=== PATIENT | female | born 1990 | race Caucasian/White ===

== ENCOUNTER 2017-08-31 11:11 | Emergency (ER) | payer MEDICARE, MEDICAID ==
[~2017-08-31 11:11] MED LIST: ABILIF5PT PO; LISD30PT PO; LOR5/325 PO; ORTHONOVUM
[2017-08-31 11:17] VITALS: BP 137/84
--- NOTE | 2017-08-31 11:20 | ER Report ---
History and Physical Time Seen By MD: 11:18 HPI/ROS CHIEF COMPLAINT: Right ankle injury HISTORY OF PRESENT ILLNESS: Patient is a 26-year-old female who was walking down a flight of stairs in her apartment when she had an inversion to her right ankle and fell down the steps. She is complaining of pain to the lateral aspect of the right ankle no foot pain no proximal fibular or tibial pain. No other injuries. Allergies: Coded Allergies: No Known Drug Allergies (Unverified , 03/15/16) Home Meds Active Scripts Hydrocodone Bit/Acetaminophen (HYDROCODON-ACETAMINOPHEN 5-325) 1 Each Tablet, 1 EACH PO Q4-6H Y for PAIN, #12 TAB 0 Refills TAKE ONE TABLET BY MOUTH EVERY 4-6 HOURS NEEDED FOR PAIN Prov:YOLANDA KNOWLES MD 08/31/17 Reported Medications Aripiprazole (ABILIFY) 5 Mg Tablet, 5 MG PO QDAY, #10 TAB TAKE 1 TABLET BY MOUTH EVERY DAY 07/05/13 Past Medical/Surgical History Prior right ankle injury Hx Smoking: No Hx Substance Use Disorder: No Hx Alcohol Use: No Constitutional Vital Sign - Last 24 Hours 08/31/17 11:17 Pulse 111 Resp 16 B/P (MAP) 137/84 Pulse Ox 94 O2 Delivery Room Air Physical Exam General appearance: alert no distress Right ankle: There is no significant swelling. There is no obvious deformity to the ankle. There is moderate tenderness to the lateral malleolus. Ankle joint is stable and there is no tenderness over the achilles tendon. The foot is non-tender without swelling. Neurologic exam: The patient has normal sensation distal to the injury. Vascular exam: Normal pulses and capillary refill in the foot [ ] DIFFERENTIAL DIAGNOSIS: After history and physical exam differential diagnosis was considered for Medical Decision Making EKG/Imaging Imaging FACILITY: [facility] PATIENT NAME: Janine Laurent : 1990 MR: [id number] V: [id number] EXAM DATE: ORDERING PHYSICIAN: YOLANDA KNOWLES TECHNOLOGIST: Location: [facility] - [place] Patient: Janine Laurent : 1990 Visit/Account:[id number] Date of Sevice: 08/31/2017 ANKLE 3 VIEW MIN RIGHT Indication: Tripped on stairs, right ankle pain. Comparison: None. Findings: Distal tibia, distal fibula, and the talus demonstrate normal mineralization and alignment. The mortise is preserved. Calcaneus is intact. Soft tissues are normal. IMPRESSION: Normal right ankle radiograph. Report Dictated By: Bruce Valle at 08/31/2017 11:51 AM Report E-Signed By: Bruce Valle at 08/31/2017 11:52 AM WSN:[id number] ED Course/Re-evaluation ED Course 08/31/2017 12:15:34 pm a unremarkable for fracture plan will be crutches and Aircast. Decision to Disposition Date: Aug 31, 2017 Decision to Disposition Time: 11:58 Depart Departure Latest Vital Signs Vital Signs Date Time Temp Pulse Resp B/P (MAP) Pulse Ox O2 Delivery O2 Flow Rate FiO2 08/31/17 11:17 111 16 137/84 94 Room Air Impression: Primary Impression: Ankle sprain Condition: Improved Disposition: HOME OR SELF-CARE Referrals: OTILIO LYNCH PA-C (PCP) New Scripts Hydrocodone Bit/Acetaminophen (HYDROCODON-ACETAMINOPHEN 5-325) 1 Each Tablet 1 EACH PO Q4-6H Y for PAIN, #12 TAB 0 Refills TAKE ONE TABLET BY MOUTH EVERY 4-6 HOURS NEEDED FOR PAIN Prov: YOLANDA KNOWLES MD 08/31/17 Patient Instructions: Ankle Sprain (ED), Crutch Instructions (GEN) Problem Qualifiers Primary Impression: Ankle sprain Encounter type: initial encounter Involved ligament of ankle: anterior talofibular ligament Laterality: right Qualified Codes: S93.491A - Sprain of other ligament of right ankle, initial encounter YOLANDA KNOWLES MD Aug 31, 2017 11:20
--- NOTE | 2017-08-31 11:56 | RADIOLOGY IMAGING REPORT ---
FACILITY: [facility] PATIENT NAME: Janine Laurent : 1990 MR: [id number] V: [id number] EXAM DATE: ORDERING PHYSICIAN: YOLANDA KNOWLES TECHNOLOGIST: Location: [facility] Patient: Janine Laurent : 1990 Visit/Account:[id number] Date of Sevice: 08/31/2017 ANKLE 3 VIEW MIN RIGHT Indication: Tripped on stairs, right ankle pain. Comparison: None. Findings: Distal tibia, distal fibula, and the talus demonstrate normal mineralization and alignment. The mortise is preserved. Calcaneus is intact. Soft tissues are normal. IMPRESSION: Normal right ankle radiograph. Report Dictated By: Bruce Valle at 08/31/2017 11:51 AM Report E-Signed By: Bruce Valle at 08/31/2017 11:52 AM WSN:[id number]
[2017-08-31] MEDS ORDERED: LOR5/325 PO (12:01)
== END 2017-08-31 12:17 | disposition home or self-care (01) ==
LOC: ER 11:39
DX: S93.491A Sprain of other ligament of right ankle, initial encounter (principal)
CPT/HCPCS: 73610; 99283; L1930

== ENCOUNTER 2017-12-03 16:13 | Emergency (ER) | payer MEDICARE, MEDICAID ==
[2017-12-03 16:45] LABS: PLATELET COUNT, AUTOMATED 180 K/uL (150-450)
--- NOTE | 2017-12-03 16:45 | EKG ---
FACILITY: [facility] PATIENT NAME: RAYMON BURCH : [id number] MR: [id number] V: [id number] EXAM DATE: ORDERING PHYSICIAN: CANELO VILLALTA TECHNOLOGIST: MAGGY Earl Reason : PAIN Blood Pressure : / mmHG Vent. Rate : 075 BPM Atrial Rate : 075 BPM P-R Int : 130 ms QRS Dur : 080 ms QT Int : 376 ms P-R-T Axes : 075 069 058 degrees QTc Int : 419 ms Normal sinus rhythm Normal ECG No previous ECGs available Confirmed by KHANH AMBROSIO ([id number]) on 12/03/2017 5:52:36 PM Referred By: BENSON Confirmed By:KHANH AMBROSIO
[2017-12-03] MEDS ORDERED: KETOROLAC 30 MG/ML VIAL IVP ONE (17:10)
--- NOTE | 2017-12-03 17:38 | RADIOLOGY IMAGING REPORT ---
FACILITY: [facility] [place] PATIENT NAME: Janine Laurent : 1990 MR: [id number] V: [id number] EXAM DATE: ORDERING PHYSICIAN: CANELO VILLALTA TECHNOLOGIST: Location: [facility] Patient: Janine Laurent : 1990 Visit/Account:[id number] Date of Sevice: 12/03/2017 RIBS LEFT HISTORY: Chest pain COMPARISON: None FINDINGS: There is no evidence of a displaced rib fracture. No pneumothorax, pleural effusion or pul monary contusion. IMPRESSION: 1. No rib fracture or complication thereof. Report Dictated By: Aquilino Gambion MD at 12/03/2017 5:33 PM Report E-Signed By: Aquilino Gambino MD at 12/03/2017 5:34 PM WSN:[id number]
--- NOTE | 2017-12-03 17:38 | RADIOLOGY IMAGING REPORT ---
FACILITY: [facility] PATIENT NAME: Janine Laurent : 1990 MR: [id number] V: [id number] EXAM DATE: ORDERING PHYSICIAN: CANELO VILLALTA TECHNOLOGIST: Location: [facility] Patient: Janine Laurent : 1990 Visit/Account:[id number] Date of Sevice: 12/03/2017 CHEST PA AND LAT HISTORY: Chest pain COMPARISON: None FINDINGS: Cardiomediastinal contours: Normal Lungs and pleura: Normal Bones/soft tissues: Normal Other findings: None significant IMPRESSION: 1. Normal chest Report Dictated By: Aquilino Gambino MD at 12/03/2017 5:31 PM Report E-Signed By: Aquilino Gambino MD at 12/03/2017 5:33 PM WSN:[id number]
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
[2017-12-03 17:45] VITALS: BP 152/106
== END 2017-12-03 17:57 | disposition home or self-care (01) ==
LOC: ER 16:15
DX: S20.20XA Contusion of thorax, unspecified, initial encounter (principal)
CPT/HCPCS: 71046; 71100; 80305; 81001; 84484; 85025; 85379; 93005; 96374; 99284; G0480; J1885; 80320; 82040; 82247; 82310; 82374; 82435; 82565; 82947; 84075; 84132; 84155; 84295; 84450; 84460; 84520

== ENCOUNTER 2018-05-31 18:18 | Emergency (ER) | payer MEDICARE, MEDICAID ==
--- NOTE | 2018-05-31 18:41 | ER Report ---
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 Patient states that today she developed some achiness and then pain in her left anterior chest, increased pain with movement of her left arm, does not radiate into the shoulder or the neck no recent injuries, no fevers or chills. No nausea or vomiting. No diarrhea. No shortness of breath. No headaches or any other concerns. Patient does now recall lifting some heavy pans while at work which could have caused some of the pain in her chest. REVIEW OF SYSTEMS: Constitutional: No fever, no chills. Eyes: No discharge. ENT: No sore throat. Cardiovascular: As above. Respiratory: No cough, no shortness of breath. Gastrointestinal: No abdominal pain, no vomiting. Genitourinary: No hematuria. Musculoskeletal: No back pain. Skin: No rashes. Neurological: No headache. Allergies: Coded Allergies: No Known Drug Allergies (Unverified , 03/15/16) Home Meds Reported Medications Guaifenesin (ROBAFEN) 100 Mg/5 Ml Liquid, 100 MG PO 05/31/18 Naproxen Sodium (ALEVE) 220 Mg Tablet, 220 MG PO TID, TAB 05/31/18 Acetaminophen (TYLENOL) 325 Mg Tablet, 500 MG PO, TAB 05/31/18 Montelukast Sodium (SINGULAIR) 10 Mg Tablet, 1 TAB PO QDAY, TAB 05/31/18 Melatonin (MELATONIN) 10 Mg Capsule, 10 MG PO, CAPSULE 05/31/18 Atomoxetine (STRATTERA) 10 Mg Cap, 80 MG PO QDAY, CAP 05/31/18 Aripiprazole (ABILIFY) 5 Mg Tablet, 10 MG PO QDAY, #10 TAB 05/31/18 Discontinued Reported Medications Aripiprazole (ABILIFY) 5 Mg Tablet, 5 MG PO QDAY, #10 TAB TAKE 1 TABLET BY MOUTH EVERY DAY 07/05/13 Past Medical/Surgical History The patient has a past medical and surgical history of developmentally delayed. Reviewed Nurses Notes: Yes Hx Smoking: No Hx Substance Use Disorder: No Hx Alcohol Use: No Constitutional Vital Sign - Last 24 Hours 05/31/18 05/31/18 05/31/18/16/18 18:38 18:46 18:48 19:00 Temp 98.9 Pulse 82 93 Resp 14 29 B/P (MAP) 124/82 (96) 124/82 130/88 (102) Pulse Ox 97 97 O2 Delivery Room Air 05/31/18 05/31/18 19:03 19:18 Pulse 90 96 Resp 19 17 Pulse Ox 96 96 Physical Exam General Appearance: The patient is alert, has no immediate need for airway pr otection and no signs of toxicity. Eyes: Pupils equal and round no pallor or injection. ENT, Mouth: Mucous membranes are moist. Respiratory: There are no retractions, lungs are clear to auscultation. Cardiovascular: Regular rate and rhythm, no murmurs, clicks or rubs. Increased pain with palpation to the left anterior chest. Gastrointestinal: Abdomen is soft and non tender, no masses, bowel sounds normal. Neurological: Alert and oriented 4. Moving all extremities. Following all commands. No focal neuro deficits. Skin: Warm and dry, no rashes. Musculoskeletal: Neck is supple non tender. Extremities are nontender, nonswollen and have full range of motion. DIFFERENTIAL DIAGNOSIS: After history and physical exam differential diagnosis was considered for chest pain including but not limited to myocardial ischemia, pericarditis pulmonary embolus, chest wall pain, pleural inflammation and pulmonary infectious causes. Medical Decision Making Data Points Result Diagram: 05/31/18190805/31/181908 Laboratory Hematology Test 05/31/18 19:09 Red Blood Count 4.96 M/uL (4.17-5.56) Mean Corpuscular Volume 88.6 fL (80.0-96.0) Mean Corpuscular Hemoglobin 31.2 pg (26.0-33.0) Mean Corpuscular Hemoglobin Concent 35.2 g/dL (32.0-36.0) Red Cell Distribution Width 12.4 % (11.5-14.5) Mean Platelet Volume 8.0 fL (7.2-11.1) Neutrophils (%) (Auto) 67.4 % (39.4-72.5) Lymphocytes (%) (Auto) 22.5 % (17.6-49.6) Monocytes (%) (Auto) 8.3 % (4.1-12.4) Eosinophils (%) (Auto) 0.5 % (0.4-6.7) Basophils (%) (Auto) 1.3 % (0.3-1.4) Nucleated RBC Relative Count (auto) 0.0 /100WBC Neutrophils # (Auto) 6.5 K/uL (2.0-7.4) Lymphocytes # (Auto) 2.2 K/uL (1.3-3.6) Monocytes # (Auto) 0.8 K/uL (0.3-1.0) Eosinophils # (Auto) 0.0 K/uL (0.0-0.5) Basophils # (Auto) 0.1 K/uL (0.0-0.1) Nucleated RBC Absolute Count (auto) 0.00 K/uL Sodium Level 141 mmol/L (137-145) Potassium Level 3.8 mmol/L (3.5-5.0) Chloride Level 107 mmol/L (98-107) Carbon Dioxide Level 23 mmol/L (22-31) Blood Urea Nitrogen 10 mg/dl (7-18) Creatinine 0.80 mg/dl (0.52-1.04) Glomerular Filtration Rate Calc > 60.0 Random Glucose 121 mg/dl (75-110) Calcium Level 8.8 mg/dl (8.4-10.2) Total Bilirubin 0.3 mg/dl (0.2-1.3) Aspartate Amino Transf (AST/SGOT) 30 U/L (0-35) Alanine Aminotransferase (ALT/SGPT) 22 U/L (0-56) Alkaline Phosphatase 89 U/L (0-126) Troponin I < 0.012 ng/ml Total Protein 6.6 g/dl (6.3-8.2) Albumin 4.0 g/dl (3.5-5.0) Chemistry Test 05/31/18 19:09 White Blood Count 9.7 k/uL (4.5-11.0) Red Blood Count 4.96 M/uL (4.17-5.56) Hemoglobin 15.5 g/dL (12.0-16.0) Hematocrit 43.9 % (34.0-47.0) Mean Corpuscular Volume 88.6 fL (80.0-96.0) Mean Corpuscular Hemoglobin 31.2 pg (26.0-33.0) Mean Corpuscular Hemoglobin Concent 35.2 g/dL (32.0-36.0) Red Cell Distribution Width 12.4 % (11.5-14.5) Platelet Count 223 K/uL (150-450) Mean Platelet Volume 8.0 fL (7.2-11.1) Neutrophils (%) (Auto) 67.4 % (39.4-72.5) Lymphocytes (%) (Auto) 22.5 % (17.6-49.6) Monocytes (%) (Auto) 8.3 % (4.1-12.4) Eosinophils (%) (Auto) 0.5 % (0.4-6.7) Basophils (%) (Auto) 1.3 % (0.3-1.4) Nucleated RBC Relative Count (auto) 0.0 /100WBC Neutrophils # (Auto) 6.5 K/uL (2.0-7.4) Lymphocytes # (Auto) 2.2 K/uL (1.3-3.6) Monocytes # (Auto) 0.8 K/uL (0.3-1.0) Eosinophils # (Auto) 0.0 K/uL (0.0-0.5) Basophils # (Auto) 0.1 K/uL (0.0-0.1) Nucleated RBC Absolute Count (auto) 0.00 K/uL Glomerular Filtration Rate Calc > 60.0 Calcium Level 8.8 mg/dl (8.4-10.2) Total Bilirubin 0.3 mg/dl (0.2-1.3) Aspartate Amino Transf (AST/SGOT) 30 U/L (0-35) Alanine Aminotransferase (ALT/SGPT) 22 U/L (0-56) Alkaline Phosphatase 89 U/L (0-126) Troponin I < 0.012 ng/ml Total Protein 6.6 g/dl (6.3-8.2) Albumin 4.0 g/dl (3.5-5.0) EKG/Imaging EKG Interpretation 12 lead EKG: Time of EKG 1846. Rhythm: Normal sinus rhythm, ventricular rate 82 bpm. [place]: normal QRS: normal ST segments: No ST depression or elevation identified. No changes from the 12/03/2017 EKG. Imaging Location: [facility] Patient: Janine Laurent : 1990 Visit/Account:[id number] Date of Sevsirisha: 05/31/2018 EXAMINATION: Chest 2 Views HISTORY: Left anterior chest pain. COMPARISON: 12/03/2017. FINDINGS: The lungs are clear. No focal consolidation or pleural fluid. No pneumothorax. Normal cardiomediastinal silhouette, with normal heart size and pulmonary vascularity. Visualized osseous structures are unremarkable. IMPRESSION: Negative chest. Report Dictated By: Edi Silva MD at 05/31/2018 8:09 PM Report E-Signed By: Edi Silva MD at 05/31/2018 8:10 PM WSN:[id number] ED Course/Re-evaluation ED Course The patient was admitted to room. A history and physical were obtained. Differential diagnoses were considered. A CBC, CMP and troponin were obtained. Negative lab studies, negative troponin. EKG showing normal sinus rhythm. Patient was given 60 mg IM Toradol. The patient does recall lifting some heavy pans while at work, and the increased pain with palpation, I suspect this is costochondritis, I did explain this to the patient and her are clear presented, do not feel that this is ACS at this time. However they are encouraged to return to the ER for any concerns or worsening symptoms. They expressed understanding and were discharged home. Decision to Disposition Date: May 31, 2018 Decision to Disposition Time: 20:36 Depart Departure Latest Vital Signs Vital Signs Date Time Temp Pulse Resp B/P (MAP) Pulse Ox O2 Delivery O2 Flow Rate FiO2 05/31/18 19:18 96 17 96 05/31/18 19:00 130/88 (102) 05/31/18 18:46 98.9 Room Air Impression: Primary Impression: Costochondritis Condition: Improved Disposition: HOME OR SELF-CARE Patient Instructions: Costochondritis (ED) Additional Instructions: There were no concerning findings on your Laboratory studies, EKG or chest x-ray today. I suspect the pain your experiencing is secondary to the strenuous work on Friday. Take ibuprofen or Tylenol as needed for pain. Follow-up with your primary care provider within one week for reevaluation. Drink plenty of water. Get plenty of rest. Return to the emergency department for any other concerns or worsening symptoms. WENDY MANDEL ENTERER-BC May 31, 2018 18:41
[2018-05-31] MEDS ORDERED: ABILIF5PT PO (18:46)
[2018-05-31] MEDS ORDERED: NAPR-1043 PO (18:46)
[2018-05-31] MEDS ORDERED: ACET-1966 PO (18:46)
[2018-05-31] MEDS ORDERED: ATO10 PO (18:46)
[2018-05-31] MEDS ORDERED: MONT10TA PO (18:46)
[2018-05-31] MEDS ORDERED: GUAI-244 PO (18:46)
[2018-05-31] MEDS ORDERED: MELA10CA PO (18:46)
[2018-05-31 19:00] VITALS: BP 130/88
[2018-05-31 19:17] LABS: PLATELET COUNT, AUTOMATED 223 K/uL (150-450)
[2018-05-31] MEDS ORDERED: KETOROLAC 60 MG/2 ML VIAL IM ONE (20:10)
--- NOTE | 2018-05-31 20:14 | RADIOLOGY IMAGING REPORT ---
FACILITY: [facility] PATIENT NAME: Janine Laurent : 1990 MR: [id number] V: [id number] EXAM DATE: ORDERING PHYSICIAN: WENDY MANDEL TECHNOLOGIST: Location: [facility] Patient: Janine Laurent : 1990 Visit/Account:[id number] Date of Sevice: 05/31/2018 EXAMINATION: Chest 2 Views HISTORY: Left anterior chest pain. COMPARISON: 12/03/2017. FINDINGS: The lungs are clear. No focal consolidation or pleural fluid. No pneumothorax. Normal cardiomedias tinal silhouette, with normal heart size and pulmonary vascularity. Visualized osseous structures ar e unremarkable. IMPRESSION: Negative chest. Report Dictated By: Edi Silva MD at 05/31/2018 8:09 PM Report E-Signed By: Edi Silva MD at 05/31/2018 8:10 PM [id number]
--- NOTE | 2018-05-31 21:47 | EKG ---
FACILITY: [facility] PATIENT NAME: RAYMON BURCH : [id number] MR: [id number] V: [id number] EXAM DATE: ORDERING PHYSICIAN: WENDY MANDEL TECHNOLOGIST: MAKSIM Test Reason : CHEST PAIN Blood Pressure : / mmHG Vent. Rate : 082 BPM Atrial Rate : 082 BPM P-R Int : 128 ms QRS Dur : 086 ms QT Int : 380 ms P-R-T Axes : 075 067 066 degrees QTc Int : 443 ms Sinus rhythm No acute appearing findings Confirmed by GRACIELA BRONSON ([id number]) on 06/01/2018 6:29:40 AM Referred By: Confirmed By:GRACIELA BRONSON
== END 2018-05-31 20:49 | disposition home or self-care (01) ==
LOC: ER 18:47
DX: M94.0 Chondrocostal junction syndrome [Tietze] (principal)
CPT/HCPCS: 36415; 71046; 84484; 85025; 93005; 96372; 99284; J1885; 82040; 82247; 82310; 82374; 82435; 82565; 82947; 84075; 84132; 84155; 84295; 84450; 84460; 84520

== ENCOUNTER 2018-07-07 17:44 | Emergency (ER) | payer MEDICARE, MEDICAID ==
[~2018-07-07 17:44] MED LIST changes: +ACET-1966 PO; +ATO10 PO; +GUAI-244 PO; +MELA10CA PO; +MONT10TA PO; +NAPR-1043 PO
--- NOTE | 2018-07-07 17:48 | ER Report ---
History and Physical Time Seen By MD: 17:48 HPI/ROS CHIEF COMPLAINT: Right wrist pain HISTORY OF PRESENT ILLNESS: This is a 27-year-old female who presents to the emergency department for right wrist pain. Patient states that about 20 minutes prior to arrival she punched a refrigerator and a wall, developed right wrist pain. Patient has some mild swelling to the right distal forearm and wrist. No obvious deformities. She does have pain with range of motion. CMS intact distal to the injury. No recent fevers or chills. No nausea or vomiting. REVIEW OF SYSTEMS: Respiratory: No cough, no dyspnea. Cardiovascular: No chest pain, no palpitations. Gastrointestinal: No vomiting, no abdominal pain. Musculoskeletal: As above. Allergies: Coded Allergies: No Known Drug Allergies (Unverified , 03/15/16) Home Meds Reported Medications Guaifenesin (ROBAFEN) 100 Mg/5 Ml Liquid, 100 MG PO 05/31/18 Naproxen Sodium (ALEVE) 220 Mg Tablet, 220 MG PO TID, TAB 05/31/18 Acetaminophen (TYLENOL) 325 Mg Tablet, 500 MG PO, TAB 05/31/18 Montelukast Sodium (SINGULAIR) 10 Mg Tablet, 1 TAB PO QDAY, TAB 05/31/18 Melatonin (MELATONIN) 10 Mg Capsule, 10 MG PO, CAPSULE 05/31/18 Atomoxetine (STRATTERA) 10 Mg Cap, 80 MG PO QDAY, CAP 05/31/18 Aripiprazole (ABILIFY) 5 Mg Tablet, 10 MG PO QDAY, #10 TAB 05/31/18 Past Medical/Surgical History The patient has no significant past medical or surgical history. Reviewed Nurses Notes: Yes Hx Smoking: No Hx Substance Use Disorder: No Hx Alcohol Use: No Constitutional Vital Sign - Last 24 Hours 07/07/18 18:00 Temp 98.2 Pulse 106 Resp 16 B/P (MAP) 133/90 Pulse Ox 96 O2 Delivery Room Air Physical Exam General Appearance: The patient is alert, has no immediate need for airway protection and no current signs of toxicity. Eyes: Pupils equal and round no injection. Respiratory: Chest is non tender, lungs are clear to auscultation. Cardiac: regular rate and rhythm. Gastrointestinal: Abdomen is soft and non tender, no masses, bowel sounds normal. Musculoskeletal: Neck: Neck is supple and non tender. Extremities Examination of the Right hand reveals no acute deformity. The patient is able to give a thumbs up sign, is able to make an okay sign, and is able to AB duct the fingers. Sensation is intact over the dorsal 1st web space, the volar aspect of the 2nd finger, and the volar aspect of the 5th finger. Capillary refill is brisk. Skin: No rashes or lesions. DIFFERENTIAL DIAGNOSIS: After history and physical exam differential diagnosis was considered for contusion fracture, subluxation. Medical Decision Making EKG/Imaging Imaging PATIENT NAME: Janine Laurent : 1990 MR: [id number] V: [id number] EXAM DATE: ORDERING PHYSICIAN: WENDY MANDEL TECHNOLOGIST: Location: [facility] Patient: Janine Laurent : 1990 Visit/Account:[id number] Date of Sevice: 07/07/2018 EXAMINATION: Right wrist radiographs 3 views HISTORY: Punched wall. Pain on ulnar side. COMPARISON: None. FINDINGS: PA, lateral and oblique views of the right wrist are obtained. Bones: Negative. Joint spaces: Negative. Hardware: None. Alignment: Normal. Soft tissues: Negative. IMPRESSION: No evidence of acute right wrist fracture. Report Dictated By: Aron Borden MD at 07/07/2018 6:45 PM Report E-Signed By: Aron Borden MD at 07/07/2018 6:47 PM WSN:[id number] ED Course/Re-evaluation ED Course The patient was admitted to room. A history and physical were obtained. Differential diagnoses were considered. An x-ray of the right hand was negative for any acute osseous abnormalities. I reviewed the results with the patient, did tell her that this is likely contusion. I did place her in a [place] splint, instructed to remove the splint every 1-2 hours for range of motion exercises. Follow up with her primary care provider in one week if no improvement. Return to the ER for any other concerns or worsening symptoms. Patient exposed understanding was discharged home. Decision to Disposition Date: Jul 07, 2018 Decision to Disposition Time: 18:59 Depart Departure Latest Vital Signs Vital Signs Date Time Temp Pulse Resp B/P (MAP) Pulse Ox O2 Delivery O2 Flow Rate FiO2 07/07/18 18:00 98.2 106 16 133/90 96 Room Air Impression: Primary Impression: Injury of right wrist Condition: Improved Disposition: HOME OR SELF-CARE Referrals: OTILIO LYNCH PA-C (PCP) Patient Instructions: Active Range of Motion Exercises (GEN), Wrist Injury (ED) Additional Instructions: There are no fractures identified on your Xray today. Use the splint for comfort. Please remove the splint and perform gentle range of motion exercises every 1-2 hours. Take Ibuprofen or Tylenol as needed for pain. Follow up with your PCP in 1 week if no improvement. Return to the ED for any other concerns or worsening symptoms. Problem Qualifiers Primary Impression: Injury of right wrist Encounter type: initial encounter Qualified Codes: S69.91XA - Unspecified injury of right wrist, hand and finger(s), initial encounter WENDY MANDEL-MIGUEL Jul 07, 2018 17:48
--- NOTE | 2018-07-07 18:50 | RADIOLOGY IMAGING REPORT ---
FACILITY: [facility] PATIENT NAME: Janine Laurent : 1990 MR: [id number] V: [id number] EXAM DATE: ORDERING PHYSICIAN: WENDY MANDEL TECHNOLOGIST: Location: [facility] Patient: Janine Laurent : 1990 Visit/Account:[id number] Date of Sevice: 07/07/2018 EXAMINATION: Right wrist radiographs 3 views HISTORY: Punched wall. Pain on ulnar side. COMPARISON: None. FINDINGS: PA, lateral and oblique views of the right wrist are obtained. Bones: Negative. Joint spaces: Negative. Hardware: None. Alignment: Normal. Soft tissues: Negative. IMPRESSION: No evidence of acute right wrist fracture. Report Dictated By: Aron Borden MD at 07/07/2018 6:45 PM Report E-Signed By: Aron Borden MD at 07/07/2018 6:47 PM WSN:[id number]
[2018-07-07 19:00] VITALS: BP 132/88
== END 2018-07-07 19:10 | disposition home or self-care (01) ==
LOC: ER 18:21
DX: S69.91XA Unspecified injury of right wrist, hand and finger(s), initial encounter (principal); W22.8XXA Striking against or struck by other objects, initial encounter
CPT/HCPCS: 73110; 99283; L3908

== ENCOUNTER 2018-07-19 14:10 | Emergency (ER) | payer MEDICARE, MEDICAID ==
[2018-07-19 14:16] VITALS: BP 128/78
--- NOTE | 2018-07-19 14:18 | ER Report ---
History and Physical Time Seen By MD: 14:18 HPI/ROS CHIEF COMPLAINT: Right ankle pain HISTORY OF PRESENT ILLNESS: This is a 27-year-old female who presents to the emergency department for right ankle pain. Patient states that she may have slipped and injured her right ankle last night her she does not recall a specific injury. She states when she woke up this morning she had increased foot and ankle pain, majority of the pain across the right lateral malleolus. No numbness or tingling. No erythema or cellulitis. No fevers. No chest pain or shortness breath. No other complaints. REVIEW OF SYSTEMS: Respiratory: No cough, no dyspnea. Cardiovascular: No chest pain, no palpitations. Gastrointestinal: No vomiting, no abdominal pain. Musculoskeletal: As above. Allergies: Coded Allergies: No Known Drug Allergies (Unverified , 03/15/16) Home Meds Reported Medications Guaifenesin (ROBAFEN) 100 Mg/5 Ml Liquid, 100 MG PO 05/31/18 Naproxen Sodium (ALEVE) 220 Mg Tablet, 220 MG PO TID, TAB 05/31/18 Acetaminophen (TYLENOL) 325 Mg Tablet, 500 MG PO, TAB 05/31/18 Montelukast Sodium (SINGULAIR) 10 Mg Tablet, 1 TAB PO QDAY, TAB 05/31/18 Melatonin (MELATONIN) 10 Mg Capsule, 10 MG PO, CAPSULE 05/31/18 Atomoxetine (STRATTERA) 10 Mg Cap, 80 MG PO QDAY, CAP 05/31/18 Aripiprazole (ABILIFY) 5 Mg Tablet, 10 MG PO QDAY, #10 TAB 05/31/18 Past Medical/Surgical History The patient has no significant past medical or surgical history. Reviewed Nurses Notes: Yes Hx Smoking: No Hx Substance Use Disorder: No Hx Alcohol Use: No Constitutional Vital Sign - Last 24 Hours 07/19/18 07/19/18 07/19/18 14:13 14:16 14:40 Temp 97.9 Pulse 112 102 Resp 16 B/P (MAP) 128/78 128/78 (95) Pulse Ox 92 96 Physical Exam General Appearance: The patient is alert, has no immediate need for airway protection and no current signs of toxicity. Eyes: Pupils equal and round no injection. Respiratory: Chest is non tender, lungs are clear to auscultation. Cardiac: regular rate and rhythm. Gastrointestinal: Abdomen is soft and non tender, no masses, bowel sounds normal. Musculoskeletal: Neck: Neck is supple and non tender. Extremities have full range of motion, mild tenderness to the right lateral malleolus, no crepitus or obvious deformity. No swelling. Good dorsal plantar fl exion and extension. Skin: No rashes or lesions. DIFFERENTIAL DIAGNOSIS: After history and physical exam differential diagnosis was considered for contusion, stress fracture, gout, osteoarthritis, subluxation. Medical Decision Making EKG/Imaging Imaging Location: [facility] Patient: Janine Laurent : 1990 Visit/Account:[id number] Date of Sevice: 07/19/2018 Right ankle, 3 views. HISTORY: Pain around lateral malleolus. COMPARISON: 08/31/2017. Minimal cortical irregularities are present along the medial aspect of the d istal fibula, unchanged. The bones, joints, and soft tissues are otherwise unremarkable. No widening of the ankle mortise. No acute fractures are identified. IMPRESSION: Negative for acute bony abnormality. Report Dictated By: Elkin Coffey MD at 07/19/2018 2:55 PM Report E-Signed By: Elkin Coffey MD at 07/19/2018 2:58 PM WSN:[id number] ED Course/Re-evaluation ED Course The patient was admitted to room. A history and physical obtained. Differential diagnoses were considered. An x-ray of the right ankle was negative for any acute osseous abnormalities. I did review the [facility], no recent prescriptions. The patient was placed in an air stirrup, instructed to keep her foot elevated, take ibuprofen or Tylenol for pain. Follow-up with her primary care provider for reevaluation. Patient expressed understanding and was discharged home. Patient was in agreement with this plan of care. Decision to Disposition Date: Jul 19, 2018 Decision to Disposition Time: 15:10 Depart Departure Latest Vital Signs Vital Signs Date Time Temp Pulse Resp B/P (MAP) Pulse Ox O2 Delivery O2 Flow Rate FiO2 07/19/18 14:40 102 96 07/19/18 14:16 128/78 (95) 07/19/18 14:13 97.9 16 Impression: Primary Impression: Right ankle pain Condition: Improved Disposition: HOME OR SELF-CARE Referrals: OTILIO LYNCH PA-C (PCP) 5 Days Patient Instructions: Ankle Strain (ED) Additional Instructions: No concerning findings on the x-ray today. Use the [place] wrap and Aircast for comfort. Take ibuprofen or Tylenol as needed for pain. Keep the ankle and foot elevated to the level of the heart, this will help with pain. Follow-up with your primary care provider within 5 days for reevaluation. Drink plenty of water. Get plenty of rest. Return to the ER for any concerns or worsening symptoms. Problem Qualifiers Primary Impression: Right ankle pain Chronicity: acute Qualified Codes: M25.571 - Pain in right ankle and joints of right foot WENDY MANDEL MORTGAGE LOAN COORDINATOR-BC Jul 19, 2018 14:18
--- NOTE | 2018-07-19 15:03 | RADIOLOGY IMAGING REPORT ---
FACILITY: [facility] PATIENT NAME: Janine Laurent : 1990 MR: [id number] V: [id number] EXAM DATE: ORDERING PHYSICIAN: WENDY MANDEL TECHNOLOGIST: Location: [facility] Patient: Janine Laurent : 1990 Visit/Account:[id number] Date of Sevice: 07/19/2018 Right ankle, 3 views. HISTORY: Pain around lateral malleolus. COMPARISON: 08/31/2017. Minimal cortical irregularities are present along the medial aspect of the distal fibula, unchanged. The bones, joints, and soft tissues are otherwise unremarkable. No widening of the ankle mortise. No acute fractures are identified. IMPRESSION: Negative for acute bony abnormality. Report Dictated By: Elkin Coffey MD at 07/19/2018 2:55 PM Report E-Signed By: Elkin Coffey MD at 07/19/2018 2:58 PM [id number]
== END 2018-07-19 15:20 | disposition home or self-care (01) ==
LOC: ER 14:14
DX: M25.571 Pain in right ankle and joints of right foot (principal)
CPT/HCPCS: 73610; 99283; L1930

== ENCOUNTER 2018-08-23 17:52 | Emergency (ER) | payer MEDICARE, MEDICAID ==
[2018-08-23 17:56] VITALS: BP 128/76
--- NOTE | 2018-08-23 18:10 | ER Report ---
History and Physical Time Seen By MD: 18:10 Hx. of Stated Complaint: patient cut finger while cleaning knife on index finger HPI/ROS CHIEF COMPLAINT: Finger laceration HISTORY OF PRESENT ILLNESS: 27-year-old female patient presents to emergency room with complaint of laceration to the tip of the right second finger. Patient states she was cleaning a knife and cut the tip of her finger without. She states she did apply pressure and that has seemed to stop the bleeding. She denies having any numbness or tingling. She states she is unsure when her last tetanus shot was. Allergies: Coded Allergies: No Known Drug Allergies (Unverified , 03/15/16) Home Meds Reported Medications Guaifenesin (ROBAFEN) 100 Mg/5 Ml Liquid, 100 MG PO 05/31/18 Naproxen Sodium (ALEVE) 220 Mg Tablet, 220 MG PO TID, TAB 05/31/18 Acetaminophen (TYLENOL) 325 Mg Tablet, 500 MG PO, TAB 05/31/18 Montelukast Sodium (SINGULAIR) 10 Mg Tablet, 1 TAB PO QDAY, TAB 05/31/18 Melatonin (MELATONIN) 10 Mg Capsule, 10 MG PO, CAPSULE 05/31/18 Atomoxetine (STRATTERA) 10 Mg Cap, 80 MG PO QDAY, CAP 05/31/18 Aripiprazole (ABILIFY) 5 Mg Tablet, 10 MG PO QDAY, #10 TAB 05/31/18 Past Medical/Surgical History Patient has a past medical history of depression. Patient has no pertinent surgical history. Reviewed Nurses Notes: Yes Hx Smoking: No Hx Substance Use Disorder: No Hx Alcohol Use: No Constitutional Vital Sign - Last 24 Hours 08/23/18 08/23/18 17:56 18:50 Temp 98.3 Pulse 99 78 Resp 16 B/P (MAP) 128/76 Pulse Ox 100 96 O2 Delivery Room Air Room Air Physical Exam General appearance: Alert no distress. Respiratory: Chest is non tender, lungs are clear to auscultation. Cardiac: Regular rate and rhythm. Skin: Patient has a 0.5 cm laceration to the distal tip of the right index finger. DIFFERENTIAL DIAGNOSIS: After history and physical exam differential diagnosis was considered for laceration. Medical Decision Making ED Course/Re-evaluation ED Course Patient was admitted to an exam room, history and physical were obtained. Differential diagnoses were considered. On examination lungs are clear, heart was regular, abdomen soft nontender. Patient did have a 0.5 cm laceration to the tip of the right first finger. The finger was anesthetized using 1% lidocaine. Patient tolerated procedure well. When she was adequately anesthetized the wound was clean. There was no opening of the wound after washing it. As results we will go ahead and place a dressing and have her continue to keep a dressing on it. We will have her monitor for signs of infection. She is return to the emergency room with any concerns. She is to do Tylenol or ibuprofen as if her pain. Patient verbalized understanding and agreement. Patient was dressed with bacitracin, Telfa and Kerlix. That was wrapped with Coban. Patient may change the dressing. I prefer that she wait until tomorrow. Patient and significant other verbalized understanding and agreement with plan. Decision to Disposition Date: Aug 23, 2018 Decision to Disposition Time: 18:35 Depart Departure Latest Vital Signs Vital Signs Date Time Temp Pulse Resp B/P (MAP) Pulse Ox O2 Delivery O2 Flow Rate FiO2 08/23/18 18:50 78 96 Room Air 08/23/18 17:56 98.3 16 128/76 Impression: Primary Impression: Laceration Condition: Improved Disposition: HOME OR SELF-CARE Referrals: OTILIO LYNCH PA-C (PCP) Patient Instructions: Finger Laceration (ED) Additional Instructions: Keep wound dry for the next 24 hours. Monitor for signs of infection; redness, swelling, heat, discharge, increasing pain or red streaking. Take Tylenol or Ibuprofen as needed for pain. Return to the ER with any concerns. You may change dressing as needed. BRANDON JUAREZ Aug 23, 2018 18:10
[2018-08-23] MEDS ORDERED: DIPHTH/TETANUS/ACEL. PERTUSSIS IM ONLY ONE (18:20)
== END 2018-08-23 18:51 | disposition home or self-care (01) ==
LOC: ER 18:17
DX: S61.210A Laceration without foreign body of right index finger without damage to nail, initial encounter (principal)
CPT/HCPCS: 90471; 90715; 99283

== ENCOUNTER 2018-11-23 13:14 | Emergency (ER) | payer MEDICARE, MEDICAID ==
[~2018-11-23 13:14] MED LIST changes: -PRED20TA6 PO
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
[2018-11-23 13:30] VITALS: BP 131/92
[2018-11-23] MEDS ORDERED: FAMOTIDINE(*) 20MG/50ML PREMIX 50 ML IVPB ONE (13:35)
[2018-11-23] MEDS ORDERED: NS(*) 0.9% 1000 ML BAG 1,000 ML IV ONE (13:35)
[2018-11-23 13:42] LABS: PLATELET COUNT, AUTOMATED 237 K/uL (150-450)
[2018-11-23] MEDS ORDERED: PRED20TA6 PO (13:53)
== END 2018-11-23 14:14 | disposition home or self-care (01) ==
LOC: ER 13:21
DX: T63.441A Toxic effect of venom of bees, accidental (unintentional), initial encounter (principal)
CPT/HCPCS: 85025; 96365; 99283; J3490; J7030; 82040; 82247; 82310; 82374; 82435; 82565; 82947; 84075; 84132; 84155; 84295; 84450; 84460; 84520

== ENCOUNTER → 2018-11-23 | Outpatient (CLI) | payer MEDICARE, MEDICAID ==
[~2018-11-23] MED LIST changes: +PRED20TA6 PO
== END ==
LOC: AMB 12:53
PROVIDERS: ATTEND Nurse Practitioner
DX: M79.621 Pain in right upper arm (principal); T63.441A Toxic effect of venom of bees, accidental (unintentional), initial encounter
CPT/HCPCS: A0425; A0427